=== PATIENT | female | born 1940 | race Caucasian/White ===

== ENCOUNTER 2018-06-08 10:39 | Outpatient (REF) | payer MEDICARE, SELFPAY ==
[2018-06-08 21:24] LABS: Anion Gap 4.9 mmol/L (3-11); BUN 18 mg/dL (7-18); CO2 30.1 mmol/L (21.0-32.0); CREATININE 0.91 mg/dL (0.55-1.02); Calcium 8.8 mg/dL (8.5-10.1); Chloride 105 mmol/L (98-107); Cholesterol 225 mg/dL (50-200); Glucose 89 mg/dL (70-100); HDL Cholesterol 64 mg/dL (40-60); LDL CHOLESTEROL 146 mg/dL (<100); Potassium 4.5 mmol/L (3.5-5.1); Sodium 140 mmol/L (136-145); TSH 3.18 uIU/mL (0.358-3.74); Triglyceride 66 mg/dL (30-150)
== END 2018-06-08 10:59 ==
LOC: NCHCN 10:39
PROVIDERS: PCP Family Medicine; Visit Provider Physician Assistant Medical
DX: E03.9 Hypothyroidism, unspecified (principal); K21.9 Gastro-esophageal reflux disease without esophagitis
CPT/HCPCS: 80048; 80061; 83721; 84443

== ENCOUNTER 2018-06-23 01:02 | Outpatient (CLI) | payer MEDICARE, SELFPAY ==
--- NOTE | 2018-06-23 08:35 | DI.MAMMO_ITS ---
SYMPTOM/DIAGNOSIS: SCREENING, HEALTH MAINTENANCE EXAM Z00.0 MAMMOGRAM: Mammograms were interpreted according to the usual protocol including computer analysis with CAD system, tomosynthesis and C view imaging. The breast tissue is of moderate radiodensity. There is no demonstrated mass. There are no suspicious calcifications and there has been no significant interval change when compared with prior images. SUMMARY: No evidence of malignancy, Category 1. Annual screening mammography is recommended. Breast density category B. SA ASSESSMENT OF FINDINGS: Negative. Category 1. Patient will receive a letter notifying them of these results. BI-RADS category B. There are scattered areas of fibroglandular density.
== END 2018-06-23 01:22 ==
PROVIDERS: PCP Family Medicine; Visit Provider Physician Assistant Medical
DX: Z12.31 Encounter for screening mammogram for malignant neoplasm of breast (principal)
CPT/HCPCS: 77063; 77067

== ENCOUNTER 2019-04-23 08:26 | Emergency (ER) | payer MEDICARE, SELFPAY ==
[2019-04-23] VITALS (51 sets, daily range): BP systolic 112–184; BP diastolic 56–150; PULSE 48–76; RESP 8–21; TEMP 36.4–36.8; O2SAT 94–100
--- NOTE | 2019-04-23 08:32 | ED.GENADUL_ITS ---
Discharge Plan Disposition Patient Disposition: [facility] Condition: Serious Discharge Details Chief Complaint: Chest Pain Clinical Impression: Non-ST elevation PA (NSTEMI) Primary Care Provider: Yusuf Markham ED Provider: Harrison Orona Home Meds and New Rx's Prescriptions: No Action ranitidine HCl [Zantac] 150 MG tablet 150 mg PO DAILY RF: 0 levothyroxine [Synthroid] 150 MCG tablet 150 mcg PO DAILY RF: 0 Calcium 600 + D(3) 600 mg calcium- 200 unit Capsule 1 cap PO DAILY RF: 0 celecoxib [Celebrex] 50 mg Capsule 50 mg PO DAILY RF: 0 Medical Decision Making 78 yo female who states she has a hx of gerd, copd though never smoker, comes in with chief complaint of sharp anterior chest pain that started shortly after swallowing toast. Denies fevers, chills, and had been feeling well prior to this. She denies any prior cardiac disesae. She appears uncomfortable on exam, does have some reproducible anterior chest pain, clear lungs, no jvd, no diaphoresis and denies radiation of pain. Given it started after eating toast could be gastritis vs spasm of the esophagus but given her age and pain will obtain troponin. her heart score is 3. No hypoxia, evidence of dvt or pleuritic pain so doubt PE. no tearing back pain and normal vascular exam so doubt dissection pt feeling much better, no longer having chest pain but states her arms in her elbows hurt and is declining further pain medicine. She remains HD stable, awaiting lab and xray pt's troponin over 2. She remains hd stable, denies chest pain though still states her arms hurt but is refusing further pain medicine. [place] consult with [facility] [place] wtih Dr. Gary from cardiology at [facility] [place] who accepts for Dr. Pena but they can't take her until tomorrow. Pt requesting [facility] as her family is in that area, will consult with them about transfer to see if they can take her sooner Spoke with [facility] cardiology Dr. Kay and agrees with current treatment plan but they can't take her today either but will place on their list and if she worsens they can take her. I spoke with Dr. Ingram who would like a delta troponin before admitting here. pt's second troponin significantly elevated at over 12 and she has had recurrence of pain, nitro drip ordered. Will discuss further with [facility] given pain recurrence and increased troponin spoke with [facility] and given recurrence of pain and significant elevation in troponin will send to their ED. Accepting provider at [facility] ED is Dr. Salas Differential Diagnosis esophageal spasm, acs, reflux Medical Records Medical records reviewed: Yes I reviewed the patient's medical records. Imaging Data Radiologic Study: Attestation: I personally reviewed and interpreted this imaging study as follows: Imaging: X-Ray My impression: no acute findings Lab Data Lab results reviewed: Yes I reviewed the patient's lab results. ECG Data Attestation: I personally reviewed and interpreted this ECG (s) as follows: Prior ECG tracings: not available for review Interpretation: sinus rhythm, rate of 50, pr 182, negative anterior t waves, no olds to compare 2nd ekg shows sinus bradycardia, rate of 54, pr 204, no acute st t wave ischemic changes compared to the first ekg 3rd ekg shows sinusbradycardia rate of 50, pr204 no acute st t wave ischemic changes compared to 1-2 ekg's HPI General Mode of arrival: ambulatory . Date/Time Provider Initiated Documentation: 04/23/19 08:27 . Limitations to Documentation: no limitations . Information obtained by: patient . History of Present Illness 78 year old F presents to the emergency department with the chief complaint of chest pain, described as severe, Quality is described as stabbing, and is localized to the chest. Patient reports no radiation. Patient started experiencing this hour(s) (1) and it has been constant. No relieving factors improve symptom(s), Patient did receive the following treatments prior to arrival, none Related Data Home Medications Medication Instructions Recorded Confirmed levothyroxine [Synthroid] 150 mcg PO DAILY 04/17/13 04/23/19 ranitidine HCl [Zantac] 150 mg PO DAILY 04/17/13 04/23/19 calcium carbonate-vitamin D3 1 cap PO DAILY 04/23/19 04/23/19 [Calcium 600 + D(3)] celecoxib [Celebrex] 50 mg PO DAILY 04/23/19 04/23/19 Allergies Allergy/AdvReac Type Severity Reaction Status Date / Time No Known Allergies Allergy Unverified 04/23/19 08:37 Review of Systems Review of Systems All systems reviewed & are unremarkable except as noted in HPI and below Constitutional Denies chills, Denies fever(s) and Denies weakness Cardiovascular Denies chest pain and Denies dyspnea Respiratory Denies cough and Denies dyspnea Gastrointestinal Denies abdominal pain, Denies nausea and Denies vomiting Integumentary/Breasts Denies rash Neurologic Denies weakness PFSH Social History Smoking/Tobacco Use Status: Never Drug use: Never Do you feel safe at home: Yes Do you feel safe in your relationship?: Yes Exam Const General: well groomed Orientation: alert HENMT Head: normal to inspection Ears: external ears normal General nose exam: external nose normal Mouth: moist mucous membranes Eyes General: appearance normal, both eyes and all related structures Neck Neck: normal visual inspection Resp Effort & Inspection: normal respiratory effort and able to speak in complete sentences Cardio Rate: regular rate Skin General skin exam: no rashes or lesions noted Neuro General: alert and oriented x3 Extrem General: normal to inspection Psych Mental Status: mental status grossly normal Critical Care Time Critical Care Time: Yes Total Critical Care Time: 120 (minutes) Attestation: time spent reviewing labs, initiating heparin and nitro for patient with nstemi and frequent reassessments for a patient with potential to deteriorate at any time
[2019-04-23] MEDS: Aspirin 81 MG CHEW 324 MG CH (08:50)
[2019-04-23 08:58] LABS: Abs Immature Grans 0.01 k/cumm (0.0-0.09); Absolute Basophil Count 0.02 k/cumm (0.0-0.2); Absolute Eosinophil Count 0.07 k/cumm (0.0-0.7); Absolute Lymphocyte Count 1.54 k/cumm (1.2-3.4); Absolute Monocyte Count 0.38 k/cumm (0.11-0.7); Absolute Neutrophil Count 2.97 k/cumm (1.2-6.7); Basophils % 0.4; Eosinophils % 1.4; HCT 39.3 % (36.0-46.0); Immature Grans % 0.2; Lymphocytes % 30.9; Mean Corp. HGB Concentration 33.1 g/dL (32.0-36.0); Mean Corpuscular Volume 93.6 fL (80-95); Mean Platelet Volume 9.5 fL (8.0-11.0); Monocytes % 7.6; Neutrophils % 59.5; Platelet Count 228 x1000/uL (130-400); RBC Distribution Width 12.7 % (11.7-14.6); White Blood Cell Count 4.99 k/cumm (4.4-10.8)
[2019-04-23 09:10] LABS: PTT Activated 25.1 sec (21.0-31.4); Prothrombin Time 9.6 sec (9.3-11.0)
[2019-04-23 09:22] LABS: ALT 21 U/L (12-78); AST 22 U/L (15-37); Albumin 3.7 g/dL (3.4-5.0); Alkaline Phosphatase 63 U/L (46-116); Anion Gap 8.9 mmol/L (3-11); BUN 15 mg/dL (7-18); Bilirubin, Total 0.4 mg/dL (0.2-1.0); CO2 28.1 mmol/L (21.0-32.0); CREATININE 0.95 mg/dL (0.55-1.02); Calcium 8.8 mg/dL (8.5-10.1); Chloride 102 mmol/L (98-107); Estimated GFR 57.19 (mL/min/1.73m2); Glucose 128 mg/dL (70-100); Magnesium 2.1 mg/dL (1.8-2.4); NT-proBNP 116 pg/mL; Potassium 3.9 mmol/L (3.5-5.1); Sodium 139 mmol/L (136-145); Total Protein 7.4 g/dL (6.4-8.2)
--- NOTE | 2019-04-23 09:27 | DI.RAD_ITS ---
SYMPTOM/DIAGNOSIS: CHEST PAIN PORTABLE AP VIEW: Comparison 01/30/16 and 04/17/13 Heart size and pulmonary vasculare are within normal limits. The lungs are clear and well expanded. No effusions or pneumothoraces are identified. Degenerative changes are seen in the spine. Surgical clips are seen in the right upper quadrant.likely reflecting prior cholecystectomy IMPRESSION: No acute pulmonary process.
[2019-04-23] MEDS: Clopidogrel 300 MG TAB PO (09:59)
--- NOTE | 2019-04-23 10:11 | DI.VRAD_ITS ---
EXAM: XR Chest, 1 View EXAM DATE/TIME: 04/23/2019 8:32 AM CLINICAL HISTORY: 78 years old, female; Other: Chest pain TECHNIQUE: Imaging protocol: XR of the chest, 1 view. COMPARISON: CR CHEST 2 VIEWS PA,LAT 04/17/2013 11:56 PM FINDINGS: Lungs: Unremarkable. No consolidation. Pleural space: Unremarkable. No pleural effusion. No pneumothorax. Heart/Mediastinum: Unremarkable. No cardiomegaly. Upper abdomen: Surgical clips in the right upper quadrant of abdomen Bones/joints: Degenerative changes in the thoracic spine IMPRESSION: No acute process Dictated and Authenticated by: Balbir Chatterjee MD. Ordering:SHANIA Terry MD
--- NOTE | 2019-04-23 10:56 | NUR.NOTE ---
Nursing Note: PT reports increasing CP (02/04). MD made aware. Verbal orders received to administer a second SL nitro tablet. BP stable at this time.
--- NOTE | 2019-04-23 11:20 | NUR.NOTE ---
Nursing Note: Additional IV access obtained in the left AC with a 20G catheter.
[2019-04-23 11:51] LABS: Troponin I 12.94 ng/mL (0.00-0.06)
--- NOTE | 2019-04-23 13:12 | NUR.NOTE ---
Nursing Note: PT report transferred to Sofie at [facility]
== END 2019-04-23 13:13 ==
PROVIDERS: Emergency Provider Emergency Medicine; PCP Physician Assistant Medical
DX: I21.4 Non-ST elevation (NSTEMI) myocardial infarction (principal); J44.9 Chronic obstructive pulmonary disease, unspecified
CPT/HCPCS: 80053; 93005; 96365; 96366; 96368; 96376; 99291; 99292; 71045; 83735; 83880; 84484; 85025; 85610; 85730; 93010; J3490

== ENCOUNTER 2019-07-25 22:09 | Outpatient (REF) | payer MEDICARE, SELFPAY ==
[2019-07-25 22:02] LABS: ALT 37 U/L (14-59); AST 22 U/L (15-37); Albumin 3.8 g/dL (3.4-5.0); Alkaline Phosphatase 80 U/L (46-116); Anion Gap 9.2 mmol/L (3-11); BUN 17 mg/dL (7-18); Bilirubin, Total 0.5 mg/dL (0.2-1.0); CO2 27.8 mmol/L (21.0-32.0); Calcium 9.1 mg/dL (8.5-10.1); Calculated LDL 77 mg/dL; Chloride 105 mmol/L (98-107); Cholesterol 150 mg/dL (50-200); Glucose 96 mg/dL (70-100); HDL Cholesterol 62 mg/dL (40-60); Potassium 4.3 mmol/L (3.5-5.1); Sodium 142 mmol/L (136-145); TSH 0.22 uIU/mL (0.36-3.74); Total Protein 6.8 g/dL (6.4-8.2); Triglyceride 59 mg/dL (30-150)
== END 2019-07-25 22:29 ==
LOC: NCHCN 22:09
PROVIDERS: PCP Physician Assistant Medical; Visit Provider Physician Assistant Medical
DX: E03.9 Hypothyroidism, unspecified (principal)
CPT/HCPCS: 80053; 80061; 84443

== ENCOUNTER 2019-08-05 04:38 | Outpatient (CLI) | payer MEDICARE, SELFPAY ==
--- NOTE | 2019-08-05 15:49 | DI.MAMMO_ITS ---
EXAM: MAMMO SCREENING CLINICAL HISTORY: SCREENING, Z12.31, HEALTH MAINTENANCE EXAM, Z00.8 TECHNIQUE: Mammograms were interpreted according to the usual protocol including computer analysis w [employer] CAD system, tomosynthesis and C-view imaging. COMPARISON: Comparison is made with exams from 2011 through 2018. FINDINGS: The breasts are composed of scattered fibroglandular densities, breast density category B. No suspici ous masses or suspicious microcalcifications are seen. There has been no significant change. IMPRESSION: Category 1, negative mammogram. Yearly screening mammography is recommended. BI-RADS Cat 1 - Negative Breast Density - Category B - Scattered areas of fibroglandular density
== END 2019-08-05 04:58 ==
PROVIDERS: PCP Physician Assistant Medical; Visit Provider Physician Assistant Medical
DX: Z12.31 Encounter for screening mammogram for malignant neoplasm of breast (principal)
CPT/HCPCS: 77063; 77067

== ENCOUNTER → 2019-08-10 10:34 | Outpatient (BNVA) | payer MEDICARE, SELFPAY | PROVIDERS: PCP Physician Assistant Medical; Referring Provider Physician Assistant Medical; Visit Provider Orthopaedic Surgery | DX: R22.31 Localized swelling, mass and lump, right upper limb (principal) | CPT/HCPCS: 99201; 99213 ==

== ENCOUNTER 2019-09-05 06:15 | Day surgery (SDC) | payer MEDICARE, SELFPAY ==
[2019-09-05] MEDS: Lactated Ringers 1,000 ML 80 ML IV (07:25)
--- NOTE | 2019-09-05 07:54 | SOFT_PTH ---
PATIENT: Karla Mg LOC: [facility] U#:[id number] AGE/SX: 79/F ROOM: RE09/05/[address]: Noah Marroquin MD : [id number] BED: DIS: 09/05/2019 SPEC #: [id number] RECD: 09/05/19 12:52 STATUS: STEPHANY REQ #: [id number] ANTHONY: 09/05/19 07:[address]: Noah Marroquin DEPT: Surgical Specimen RECD BY: Gin Vasques ENTERED: 09/05/19 12:53 SP TYPE: SOFT OTHR DR: Yusuf Markham Tissues: 1 - SOFT TISSUE-CYST(NOT LIPOMA) Procedures: GROSS AND MICRO LEVEL 4 Comments: [id number]
[2019-09-05] MEDS: Lidocaine 2% Multi-Dose 50 ML VIAL (07:55)
--- NOTE | 2019-09-05 08:16 | W.PM.DSUDISC ---
Discharge Plan Disposition Patient Disposition: HOME Condition: Good Discharge Details Reason For Visit: Excision mass RIF Attending Provider: Noah Marroquin Primary Care Provider: Yusuf Markham Home Meds and New Rx's Prescriptions: New hydrocodone-acetaminophen 5-325 mg tablet 1 tab PO Q6H PRN (Reason: pain) Qty: 7 RF: 0 Continued atorvastatin 40 mg tablet 40 mg PO .QOD RF: 0 pantoprazole 40 mg tablet,delayed release (DR/EC) 20 mg PO DAILY RF: 0 ranitidine HCl [Zantac] 150 MG tablet 150 mg PO DAILY RF: 0 Calcium 600 + D(3) 600 mg calcium- 200 unit Capsule 1 cap PO DAILY RF: 0 levothyroxine [Unithroid] 137 mcg Tablet 137 mcg PO DAILY RF: 0 aspirin [Aspir-81] 81 mg Tablet,Delayed Release (Dr/Ec) 81 mg PO DAILY RF: 0 albuterol sulfate [ProAir HFA] 90 mcg/actuation Hfa Aerosol Inhaler 2 puff INHALATION PRN PRNRF: 0 Discharge Instructions Additional Instructions: Keep dressings dry. May use R hand as much as discomfort allows. Follow up with in 10-14 days. Take tylenol for mild pain. Take hydrocodone for breakthru pain, if needed. Referrals: Noah Marroquin MD [ [facility] STAFF PHYSICIAN] - (f/u in 10-14 days.) Activity:: Activity as Tolerated Remove Dressings/Wound Care:: Do Not Remove Shower/Bathe:: Cover Diet:: As Tolerated Discharge Orders Discharge Orders: Discharge Order (Routine); Ordered 09/05/19 Ordered By: Noah Marroquin DS: Diagnosis Discharge Diagnosis (1) Subcutaneous mass of finger of right hand: Status: Acute
[2019-09-05 12:25] VITALS: BP 166/78; PULSE 81; RESP 16; TEMP 36.5; O2SAT 100
--- NOTE | 2019-09-06 16:19 | ROE_ITS ---
DATE OF PROCEDURE: September 05, 2019 PREOPERATIVE DIAGNOSIS: Subcutaneous mass, right index finger, of uncertain behavior. POSTOPERATIVE DIAGNOSIS: Same. PROCEDURE: Excisional biopsy of subcutaneous mass, right index finger. ANESTHESIA: Digital block with 1% Xylocaine solution and 0.5% Marcaine solution. SURGEON: Noah Marroquin M.D. INDICATIONS: This is a 79-year-old white female with a 4 to 5 history of a slowly enlarging mass on the right index finger. She has no pain with the mass. She sought medical attention because the siz e of the mass was so large that it interfered with flexion of her DIP joint of her right index finger . Examination showed it to be a hard, solid mass. Whether it is benign or malignant was uncertain. Because of the large size it had grown to, I recommended excisional biopsy to obtain an accurate justyna gnosis and also to improve the flexion of her DIP joint of the right index finger. The risks and com plications of the procedure were explained to the patient in detail preoperatively. PROCEDURE: The patient was taken to the operating room on 09/05/19. She was placed supine on the ope rating table. The right hand was prepped and draped free in the usual sterile fashion. A digital bl ock was administered at the level of the metacarpal neck to the right index finger with 1% Xylocaine solution. A [place] tourniquet was applied to the proximal base of the finger. An oblique incision was made over the mass beginning at the ulnar side of the distal flexion crease, extending to the rad ial side of the middle flexion crease of the finger. The incision was carried just through the skin and then sharp dissection was used to circumferentially dissect the skin and subcu off the mass. The mass appeared to be well-encapsulated, although quite irregular in shape. Sharp dissection was used to peel the mass, along with a portion of the distal flexor sheath, in one specimen. On inspection of the wound following excision, there appeared to be just normal tissue remaining. The wound was ir rigated with Betadine and saline solution and the wound margins were infiltrated with 0.5% Marcaine s olution for postoperative analgesia. The skin edges were then loosely approximated with interrupted #4-0 nylon sutures. The wound was dressed with Xeroform gauze and then followed with tube gauze. Th e [place] tourniquet was released prior to skin closure and good hemostasis was obtained with simple direct pressure for a couple of minutes. The patient tolerated the procedure well and was discharged to the Day Surgery Unit in good condition. The patient was discharged home from the Day Surgery Unit with instructions to keep her dressings miguel an and dry for the next week. She may move her finger as much as discomfort allows. She'll take Tyl enol or ibuprofen [id number] for pain. She will follow-up in my office in one week for dressin g change and wound check.
== END 2019-09-05 08:45 | disposition home or self-care (01) ==
PROVIDERS: PCP Physician Assistant Medical; Visit Provider Orthopaedic Surgery
PROC: (CPT 26160; principal; 2019-09-05 07:30)
DX: D48.1 Neoplasm of uncertain behavior of connective and other soft tissue (principal)
CPT/HCPCS: 11422; 88305

== ENCOUNTER → 2019-09-14 10:34 | Outpatient (BNVA) | payer MEDICARE, SELFPAY | PROVIDERS: PCP Physician Assistant Medical; Referring Provider Physician Assistant Medical; Visit Provider Orthopaedic Surgery | DX: Z47.89 Encounter for other orthopedic aftercare (principal); R22.31 Localized swelling, mass and lump, right upper limb ==

== ENCOUNTER → 2019-10-11 08:35 | Outpatient (BNVA) | payer MEDICARE, SELFPAY | PROVIDERS: PCP Physician Assistant Medical; Referring Provider Physician Assistant Medical; Visit Provider Orthopaedic Surgery | DX: Z47.89 Encounter for other orthopedic aftercare (principal); D48.1 Neoplasm of uncertain behavior of connective and other soft tissue ==

== ENCOUNTER 2019-10-11 08:53 | Outpatient (REF) | payer MEDICARE, SELFPAY ==
[2019-10-11 19:30] LABS: TSH 0.83 uIU/mL (0.36-3.74)
== END 2019-10-11 09:13 ==
LOC: NCHCN 08:53
PROVIDERS: PCP Physician Assistant Medical; Visit Provider Physician Assistant Medical
DX: E03.9 Hypothyroidism, unspecified (principal)
CPT/HCPCS: 84443

== ENCOUNTER 2019-10-24 12:42 | Emergency (ER) | payer MEDICARE, SELFPAY ==
[2019-10-24 12:46] VITALS: BP 185/85; PULSE 104; RESP 18; TEMP 36.5; O2SAT 98
--- NOTE | 2019-10-24 13:23 | ED.GENADUL_ITS ---
Discharge Plan Disposition Patient Disposition: HOME Condition: Stable Discharge Details Chief Complaint: Laceration Clinical Impression: Laceration of scalp, Fall, Head injury Primary Care Provider: Yusuf Markham ED Provider: Alfredo Conrad Home Meds and New Rx's Prescriptions: New cephalexin [Keflex] 500 mg capsule 500 mg PO QID Qty: 37 RF: 0 Continued atorvastatin 40 mg tablet 40 mg PO .QOD RF: 0 pantoprazole 40 mg tablet,delayed release (DR/EC) 20 mg PO DAILY RF: 0 Calcium 600 + D(3) 600 mg calcium- 200 unit Capsule 1 cap PO DAILY RF: 0 levothyroxine [Unithroid] 137 mcg Tablet 137 mcg PO DAILY RF: 0 aspirin [Aspir-81] 81 mg Tablet,Delayed Release (Dr/Ec) 81 mg PO DAILY RF: 0 albuterol sulfate [ProAir HFA] 90 mcg/actuation Hfa Aerosol Inhaler 2 puff INHALATION PRN PRNRF: 0 Discharge Instructions Instructions: Cephalexin (By mouth), Laceration (ED), Head Injury (ED), Staple Care (ED) Additional Instructions: Please return immediately to the emergency department if you develop any new or worsening symptoms, if your condition does not improve as expected, or if you become otherwise concerned. It is extremely important that you call soon as possible to make an appointment to be seen in follow-up for this visit by your primary care doctor. You need to have your wound rechecked in 3 to 4 days. Please return to the emergency department at this time if you are unable to see your primary doctor for this. You will also need to have your westley removed in 10 days, this may be done either by her primary care doctor or in the emergency department. Referrals: Yusuf Markham PA [Primary Care Provider] - Discharge Data Discharge Date/Time-TO BE ENTERED AT DEPARTURE: 10/24/19 18:05 Medical Decision Making <Nahomi Villanueva MD - Last Filed: 10/27/19 21:01> Karla Mg is a 79-year-old woman with a history of GERD, coronary artery disease, COPD who presented to the emergency department with fall of unclear etiology resulting in head injury, scalp laceration. On exam patient is very well and nontoxic appearing. Benign cardiopulmonary exam. Sick centimeter curvilinear scalp laceration, no active bleeding, cervical spine nontender to palpation. Nonfocal neurologic exam. Concern for fall caused by possible syncope versus mechanical, acute emergent intracranial trauma. Plan for EKG, chest x-ray, screening labs, CT head, laceration repair. Exam/history is not c onsistent with sepsis, cerebrovascular accident, acute aortic pathology, pulmonary embolism. Tetanus up-to-date upon record review. CT head, chest x-ray negative. Labs reviewed, troponin negative, TSH normal. Laceration irrigated copiously under pressure. During exploration of wound, laceration/tear of galea noted. Due to tear, unable to fully approximate galea. Galea approximated as closely as possible using Vicryl sutures. Wound reirrigated copiously under pressure after closure of galea. Skin repaired with westley. Please see procedure note. Given galea laceration, plan for proph ylactic Keflex. Low suspicion for ACS, however given incident occurred just prior to arrival awaiting repeat troponin. Anticipating discharge, I had a lengthy discussion with Patient regarding return to emergency department precautions, home care, and importance of outpatient follow-up. Pt verbalizes understanding of the plan and is amenable. Disposition decision was made weighing the risks and benefits of hospitalization versus outpatient treatment, the risk for further decompensation, and the patient's wishes. Patient signed out to Dr. Conrad with repeat troponin pending Medical Records Medical records reviewed: Yes I reviewed the patient's medical records. Imaging Data Radiologic Study: Attestation: I personally reviewed and interpreted this imaging study as follows: Radiologist's impression: EXAM: XR CHEST 2V PA LATERAL CLINICAL HISTORY: pre-syncope TECHNIQUE: 2D digital imaging was performed. COMPARISON: No exams were available for comparison FINDINGS: The cardiac and mediastinal contours have a normal appearance. The lungs are well inflated and clear. No infiltrate, effusion or pneumothorax is seen. No spine or rib fracture is identified. IMPRESSION: Negative chest x-ray. EXAM: CT HEAD WO CLINICAL HISTORY: TRAUMA, HEADACHE TECHNIQUE: Noncontrast COMPARISON: No exams were available for comparison FINDINGS: There is a scalp laceration seen near the vertex. There is no skull fracture or intracranial hemorrhage. The ventricles are normal size. There is mild atrophy consistent with the patient's age. The sinuses and mastoid air cells appear clear. IMPRESSION: Scalp laceration. No acute intracranial abnormality. Lab Data Lab results reviewed: Yes I reviewed the patient's lab results. Labs: Laboratory Tests Range/Units 10/24/19 10/24/19 10/24/19 13:55 13:55 17:21 WBC (4.4-10.8) k/cumm 4.76 RBC (4.00-5.20) m/cumm 4.26 Hgb (12.0-15.5) g/dL 12.6 Hct (36.0-46.0) % 39.3 MCV (80-95) fL 92.3 MCH (27.0-33.0) pg 29.6 MCHC (32.0-36.0) g/dL 32.1 RDW (11.7-14.6) % 12.4 Plt Count (130-400) x1000/uL 246 MPV (8.0-11.0) fL 9.1 Immature Gran % % 0.4 Neutrophils % 69.4 Lymphocytes % 22.9 Monocytes % 6.3 Eosinophils % 0.8 Basophils % 0.2 Absolute Neutrophils (1.2-6.7) k/cumm 3.30 Absolute Lymphocytes (1.2-3.4) k/cumm 1.09 L Absolute Monocytes (0.11-0.7) k/cumm 0.30 Absolute Eosinophils (0.0-0.7) k/cumm 0.04 Absolute Basophils (0.0-0.2) k/cumm 0.01 Sodium (136-145) mmol/L 143 Potassium (3.5-5.1) mmol/L 3.6 Chloride (98-107) mmol/L 103 Carbon Dioxide (21.0-32.0) mmol/L 30.1 Anion Gap (3-11) mmol/L 9.9 BUN (7-18) mg/dL 22 H Creatinine (0.55-1.02) mg/dL 0.89 Estimated GFR/1.73 m2 (mL/min/1.73m2) >= 60.00 Glucose (74-106) mg/dL 99 Calcium (8.5-10.1) mg/dL 9.1 Total Bilirubin (0.2-1.0) mg/dL 0.5 AST (15-37) U/L 26 ALT (14-59) U/L 21 Alkaline Phosphatase (46-116) U/L 81 Troponin I (<0.06) ng/Ml < 0.05 < 0.05 Total Protein (6.4-8.2) g/dL 7.5 Albumin (3.4-5.0) g/dL 3.9 TSH (0.36-3.74) uIU/mL 0.58 ECG Data Attestation: I personally reviewed and interpreted this ECG (s) as follows: Interpretation: EKG shows sinus rhythm at 65, normal axis, no WPW, no Brugada, normal intervals, no HOCM, no acute ischemic changes, nondiagnostic EKG <Alfredo Conrad DO - Last Filed: 10/24/19 17:58> Patient was signed out to me by my colleague Dr. Citlaly Villanueva pending repeat troponin. Repeat troponin has returned normal. Patient remains asymptomatic and is requesting discharge. She feels well. Signs and symptoms are clinically inconsistent with ACS. Laceration has been repaired by Dr. Villanueva. Please refer to her note, documentation history and assessment for plan. I have extensively reviewed the treatment plan and discharge instructions with the patient and their family. I have addressed all patient concerns at this time. The patient and family was made aware of what symptoms to monitor for that would warrant a return to the emergency department. Discussed the plan with the patient and family, they demonstrate verbal understanding and agreement with our assessment and plan at this time. HPI <Nahomi Villanueva MD - Last Filed: 10/27/19 21:01> General Mode of arrival: ambulatory . Date/Time Provider Initiated Documentation: 10/24/19 12:50 . Limitations to Documentation: no limitations . Information obtained by: patient, family, RN notes reviewed and old records reviewed . HPI Narrative: Karla Mg is a 79 y/o woman with history of COPD, GERD, coronary artery disease presenting to the emergency department with head laceration. Patient reports that she was in her usual state of health when she was out working in her woodpile. She reports that 2 boards placed on the ground near her woodpile to walk on. Patient reports that she stepped onto 1 of the boards, and when she went to step onto the second something funny happened with my feet and she fell to the side, hitting her head on a piece of machinery. Patient states that she is unsure if she had a misstep and the fall was mechanical, or whether the fall was physiologic. With regards to how the fall occurred, patient reports I do not know, I do not know if I stepped wrong or not, I just know something weird happened. Patient reports that she had no loss of consciousness either prior to hitting her head or after hitting her head and remembers the event in its entirety. Patient reports that incident occurred approximately 1 hour prior to arrival. She reports that she got up immediately after the fall and has been walking without issue. Patient reports that she has had pain in the area of her head where the laceration is, she denies any other pain or any other symptoms. No fevers, no vision changes, no palpitations, no shortness of breath, no cough, no vomiting, no diarrhea, no numbness, no weakness, no other injury or skin wound. Previously in her usual state of health, no recent travel, has been eating and drinking as usual. Patient reports that she has not had this sensation that she had today in the past, does not have a history of falls, presyncope, or syncope. Related Data Home Medications Medication Instructions Recorded Confirmed Calcium 600 + D(3) 1 cap PO DAILY 04/23/19 10/24/19 atorvastatin 40 mg tablet 40 mg PO .QOD 08/10/19 10/24/19 pantoprazole 40 mg tablet,delayed 20 mg PO DAILY 08/10/19 10/24/19 release albuterol sulfate [ProAir HFA] 2 puff INHALATION PRN PRN 09/02/19 10/24/19 aspirin [Aspir-81] 81 mg PO DAILY 09/02/19 10/24/19 levothyroxine [Unithroid] 137 mcg PO DAILY 09/02/19 10/24/19 cephalexin [Keflex] 500 mg PO QID #37 cap 10/24/19 Previous Rx's Medication Instructions Recorded cephalexin [Keflex] 500 mg PO QID #37 cap 10/24/19 Allergies Allergy/AdvReac Type Severity Reaction Status Date / Time No Known Allergies Allergy Verified 10/24/19 12:49 General Stated Complaint: Laceration SANIYA: 3 Review of Systems <Nahomi Villanueva MD - Last Filed: 10/27/19 21:01> Narrative: Constitutional: denies fevers Eyes: denies eye pain ENT: denies ear pain, dental pain, sore throat Cardiovascular: denies chest pain, edema, lightheadedness, palpitations Respiratory: denies SOB, cough GI: denies abdominal pain, vomiting, diarrhea : denies flank pain MSK: denies back pain, neck pain, arthralgias, myalgias Skin: denies rash Neuro: denies numbness, weakness, vertigo, reports headache PFSH <Nahomi Villanueva MD - Last Filed: 10/27/19 21:01> Medical History COPD (chronic obstructive pulmonary disease) (Chronic) GERD (gastroesophageal reflux disease) (Chronic) NSTEMI (non-ST elevated myocardial infarction) (Acute) Per pt cardiac cath 04/25/19 Social History Smoking/Tobacco Use Status: Never Alcohol Intake: current Alcohol Intake frequency: holidays/special occasions only Alcohol type: hard liquor Drug use: Never Substance use type: does not use Current gender identity: female Do you feel safe at home: Yes Do you feel safe in your relationship?: Yes Exam <Nahomi Villanueva MD - Last Filed: 10/27/19 21:01> Narrative Exam Narrative: Constitutional: well and [id number], pleasant, conv ersing normally HENT: head normocephalic, 6 centimeter curvilinear laceration posterior scalp, no active bleeding, mucous membranes moist, no intraoral lesion, oropharynx without erythema or edema Eyes: conjunctiva normal, sclera normal, pupils 3mm b/l Neck: no stridor, full painless ROM, trachea midline, cervical spine nontender to palpation Chest: normal inspection Resp: normal work of breathing, LCTAB Cardio: normal rate, normal rhythm, no murmur appreciated GI: abdomen soft, non-tender, non-distended Back: normal inspection, no rash Skin: warm, dry, normal color, no rash Neuro: alert, not altered, cranial nerves II through XII intact, motor 5 out of 5 bilateral upper and lower extremities, normal tone Ext: no edema, no posterior calf tenderness, moving all extremities equally Psych: normal mood, normal affect, normal behavior Course <Nahomi Villanueva MD - Last Filed: 10/27/19 21:01> Vital Signs Vital signs: Vital Signs Temperature 36.5 C 10/24/19 12:46 Pulse 104 H 10/24/19 12:46 Respiratory Rate 18 10/24/19 12:46 Blood Pressure 185/85 H 10/24/19 12:46 Pulse Oximetry 98 10/24/19 12:46 Temperature 36.5 C 10/24/19 12:46 Temperature Source Temporal Artery Scan 10/24/19 12:46 Pulse 104 H 10/24/19 12:46 Respiratory Rate 18 10/24/19 12:46 Respiratory Effort 10/24/19 12:52 Blood Pressure 185/85 H 10/24/19 12:46 Blood Pressure Position Sitting 10/24/19 12:46 Pulse Oximetry 98 10/24/19 12:46 Oxygen Delivery Method Room Air 10/24/19 12:46 Oxygen Flow Rate 0 10/24/19 12:46 Pain Level 8 10/24/19 12:46 Procedures <Nahomi Villanueva MD - Last Filed: 10/27/19 21:01> Laceration Laceration 1: Site: scalp Size (cm): 6 Description: linear and clean Pre-repair: wound explored and irrigated extensively (Under pressure) Skin layer closed with: other (Westley) Subcutaneous layer closed with: vicryl (Galea repair) Size: 4-0 Number of sutures: 3 Technique: simple, interrupted Sign Out <Nahomi Villanueva MD - Last Filed: 10/27/19 21:01> Sign Out Data: Sign Out Comment: Patient signed out to Dr. Conrad at time of shift change with repeat troponin pending Last updated by Nahomi Villanueva MD at 10/24/19 17:22
--- NOTE | 2019-10-24 13:44 | DI.CT_ITS ---
EXAM: CT HEAD WO CLINICAL HISTORY: TRAUMA, HEADACHE TECHNIQUE: Noncontrast COMPARISON: No exams were available for comparison FINDINGS: There is a scalp laceration seen near the vertex. There is no skull fracture or intracranial hemorrh age. The ventricles are normal size. There is mild atrophy consistent with the patient's age. The sinuses and mastoid air cells appear clear. IMPRESSION: Scalp laceration. No acute intracranial abnormality.
--- NOTE | 2019-10-24 13:46 | DI.RAD_ITS ---
EXAM: XR CHEST 2V PA LATERAL CLINICAL HISTORY: pre-syncope TECHNIQUE: 2D digital imaging was performed. COMPARISON: No exams were available for comparison FINDINGS: The cardiac and mediastinal contours have a normal appearance. The lungs are well inflated and clear . No infiltrate, effusion or pneumothorax is seen. No spine or rib fracture is identified. IMPRESSION: Negative chest x-ray.
[2019-10-24] MEDS: Normal Saline 500 ML IV (13:55)
[2019-10-24 14:09] LABS: Abs Immature Grans 0.02 k/cumm (0.0-0.09); Absolute Basophil Count 0.01 k/cumm (0.0-0.2); Absolute Eosinophil Count 0.04 k/cumm (0.0-0.7); Absolute Lymphocyte Count 1.09 k/cumm (1.2-3.4); Basophils % 0.2; Eosinophils % 0.8; HCT 39.3 % (36.0-46.0); HGB 12.6 g/dL (12.0-15.5); Immature Grans % 0.4 %; Lymphocytes % 22.9; Mean Corp. HGB Concentration 32.1 g/dL (32.0-36.0); Mean Corpuscular Hemoglobin 29.6 pg (27.0-33.0); Mean Corpuscular Volume 92.3 fL (80-95); Mean Platelet Volume 9.1 fL (8.0-11.0); Monocytes % 6.3; Neutrophils % 69.4; Platelet Count 246 x1000/uL (130-400); RBC 4.26 m/cumm (4.00-5.20); RBC Distribution Width 12.4 % (11.7-14.6); White Blood Cell Count 4.76 k/cumm (4.4-10.8)
[2019-10-24 14:28] LABS: ALT 21 U/L (14-59); AST 26 U/L (15-37); Albumin 3.9 g/dL (3.4-5.0); Alkaline Phosphatase 81 U/L (46-116); Anion Gap 9.9 mmol/L (3-11); BUN 22 mg/dL (7-18); Bilirubin, Total 0.5 mg/dL (0.2-1.0); CO2 30.1 mmol/L (21.0-32.0); CREATININE 0.89 mg/dL (0.55-1.02); Calcium 9.1 mg/dL (8.5-10.1); Chloride 103 mmol/L (98-107); Glucose 99 mg/dL (74-106); Potassium 3.6 mmol/L (3.5-5.1); Sodium 143 mmol/L (136-145); TSH (W/Ref FT4) 0.58 uIU/mL (0.36-3.74); Total Protein 7.5 g/dL (6.4-8.2)
[2019-10-24 14:29] LABS: Troponin I < 0.05 ng/Ml (<0.06)
[2019-10-24] MEDS: Lidocaine/Epinephri/Tetracaine Topical Gel 3 ML (14:32)
[2019-10-24 15:30] VITALS: BP 160/85; PULSE 100
[2019-10-24] MEDS: Acetaminophen 500 MG TAB (17:34)
[2019-10-24] MEDS: Cephalexin 500 MG CAP PO (17:34)
[2019-10-24 17:41] LABS: Troponin I < 0.05 ng/Ml (<0.06)
[2019-10-24] MEDS: Cephalexin 250 MG CAP 500 MG PO ×2 (17:59)
[2019-10-24 18:08] VITALS: BP 151/92; PULSE 70; RESP 18; TEMP 36.5; O2SAT 96
== END 2019-10-24 18:05 | disposition home or self-care (01) ==
PROVIDERS: Student in an Organized Health Care Education/Training Program; Emergency Provider Student in an Organized Health Care Education/Training Program; PCP Physician Assistant Medical
DX: S01.01XA Laceration without foreign body of scalp, initial encounter (principal); S09.90XA Unspecified injury of head, initial encounter; W01.198A Fall on same level from slipping, tripping and stumbling with subsequent striking against other object, initial encounter
CPT/HCPCS: 36415; 80053; 93005; 96360; 99285; 70450; 71046; 84443; 84484; 85025; 93010; 99281

== ENCOUNTER 2019-11-05 09:25 | Emergency (ER) | payer MEDICARE, SELFPAY ==
[2019-11-05 09:32] VITALS: BP 174/79; PULSE 78; RESP 16; TEMP 36.5; O2SAT 97
--- NOTE | 2019-11-05 09:35 | ED.GENADUL_ITS ---
Discharge Plan Disposition Patient Disposition: HOME Condition: Improving Discharge Details Chief Complaint: SutureRem Clinical Impression: Encounter for removal of tammy Primary Care Provider: Yusuf Markham ED Provider: Noah Pack Home Meds and New Rx's Prescriptions: Continued atorvastatin 40 mg tablet 40 mg PO .QOD RF: 0 pantoprazole 40 mg tablet,delayed release (DR/EC) 20 mg PO DAILY RF: 0 Calcium 600 + D(3) 600 mg calcium- 200 unit Capsule 1 cap PO DAILY RF: 0 levothyroxine [Unithroid] 137 mcg Tablet 137 mcg PO DAILY RF: 0 aspirin [Aspir-81] 81 mg Tablet,Delayed Release (Dr/Ec) 81 mg PO DAILY RF: 0 albuterol sulfate [ProAir HFA] 90 mcg/actuation Hfa Aerosol Inhaler 2 puff INHALATION PRN PRNRF: 0 Discharge Instructions Additional Instructions: Resume normal routine and activities. Continue your regular medications. Return for any acute concern. Medical Decision Making 79-year-old female presents for evaluation of healing scalp wound that was repaired with tammy on October 24. 9 tammy were removed without difficulty by nursing staff. Patient stable and appropriate for discharge to home. HPI General Mode of arrival: ambulatory . Date/Time Provider Initiated Documentation: 11/05/19 09:26 . Limitations to Documentation: no limitations . Information obtained by: patient . History of Present Illness 79 year old F presents to the emergency department with the chief complaint of Wound check and staple removal, and is localized to the head. Patient started experiencing this day(s) and it has been constant. No relieving factors improve symptom(s), No exacerbating factors reported . Patient notes no other symptoms.. Related Data Home Medications Medication Instructions Recorded Confirmed Calcium 600 + D(3) 1 cap PO DAILY 04/23/19 11/05/19 atorvastatin 40 mg tablet 40 mg PO .QOD 08/10/19 11/05/19 pantoprazole 40 mg tablet,delayed 20 mg PO DAILY 08/10/19 11/05/19 release albuterol sulfate [ProAir HFA] 2 puff INHALATION PRN PRN 09/02/19 11/05/19 aspirin [Aspir-81] 81 mg PO DAILY 09/02/19 11/05/19 levothyroxine [Unithroid] 137 mcg PO DAILY 09/02/19 11/05/19 Allergies Allergy/AdvReac Type Severity Reaction Status Date / Time No Known Allergies Allergy Verified 11/05/19 09:35 General SANIYA: 3 Review of Systems Narrative: No fever, discharge, redness. [facility] Medical History COPD (chronic obstructive pulmonary disease) (Chronic) GERD (gastroesophageal reflux disease) (Chronic) NSTEMI (non-ST elevated myocardial infarction) (Acute) Per pt cardiac cath 04/25/19 Social History Smoking/Tobacco Use Status: Never Alcohol Intake: current Alcohol Intake frequency: holidays/special occasions only Alcohol type: hard liquor Drug use: Never Substance use type: does not use Current gender identity: female Do you feel safe at home: Yes Do you feel safe in your relationship?: Yes Exam Narrative Exam Narrative: GEN: awake, alert, oriented 3. Pleasant, well groomed, interactive. HEAD: Normocephalic, healing scalp laceration with [address] on the vertex. Minimal hematoma present. No evidence of discharge or erythema. ENT: Mucous membranes moist, oropharynx unremarkable, External ear exam unremarkable Neuro: Grossly normal neurologic exam, conversant, interactive. Psych: Speech fluent, thoughts congruent, affect normal
== END 2019-11-05 09:41 | disposition home or self-care (01) ==
LOC: ER 09:41
PROVIDERS: Emergency Provider Emergency Medicine; PCP Physician Assistant Medical
DX: S01.01XD Laceration without foreign body of scalp, subsequent encounter (principal); W01.198D Fall on same level from slipping, tripping and stumbling with subsequent striking against other object, subsequent encounter; Z48.02 Encounter for removal of sutures

== ENCOUNTER 2020-10-17 19:15 | Outpatient (REF) | payer MEDICARE, SELFPAY ==
[2020-10-17 20:59] LABS: ALT 19 U/L (14-59); AST 17 U/L (15-37); Albumin 3.8 g/dL (3.4-5.0); Alkaline Phosphatase 75 U/L (46-116); Anion Gap 5.6 mmol/L (3-11); BUN 16 mg/dL (7-18); Bilirubin, Total 0.5 mg/dL (0.2-1.0); CO2 31.4 mmol/L (21.0-32.0); CREATININE 0.88 mg/dL (0.55-1.02); Calcium 8.9 mg/dL (8.5-10.1); Calculated LDL 85 mg/dL (<100); Chloride 106 mmol/L (98-107); Cholesterol 154 mg/dL (<200); Glucose 95 mg/dL (74-106); HDL Cholesterol 56 mg/dL (40-60); Sodium 143 mmol/L (136-145); TSH 0.69 uIU/mL (0.36-3.74); Total Protein 6.9 g/dL (6.4-8.2); Triglyceride 69 mg/dL (<150)
== END 2020-10-17 19:35 ==
LOC: NCHCN 19:15
PROVIDERS: PCP Physician Assistant Medical; Visit Provider Physician Assistant Medical
DX: R51.9 Headache, unspecified (principal); E03.9 Hypothyroidism, unspecified; I25.2 Old myocardial infarction
CPT/HCPCS: 80053; 80061; 84443

== ENCOUNTER 2021-03-12 18:40 | Outpatient (REF) | payer MEDICARE, SELFPAY ==
[2021-03-14 11:07] LABS: HSV 1 DNA Result Negative (Negative); HSV 2 DNA Result Negative (Negative); Varicella Zoster DNA Result Negative (Negative)
== END 2021-03-12 18:41 | disposition home or self-care (01) ==
LOC: NCHCN 18:40
PROVIDERS: PCP Physician Assistant Medical; Visit Provider Physician Assistant Medical
DX: N89.8 Other specified noninflammatory disorders of vagina (principal)
CPT/HCPCS: 87529; 87798

== ENCOUNTER 2022-01-28 19:44 | Outpatient (REF) | payer MEDICARE, SELFPAY ==
[2022-01-28 19:25] LABS: ALT 21 U/L (14-59); AST 18 U/L (15-37); Albumin 3.7 g/dL (3.4-5.0); Alkaline Phosphatase 84 U/L (46-116); Anion Gap 8.5 mmol/L (3-11); BUN 9 mg/dL (7-18); CO2 28.5 mmol/L (21.0-32.0); CREATININE 0.8 mg/dL (0.55-1.02); Calcium 8.3 mg/dL (8.5-10.1); Calculated LDL 68 mg/dL (<100); Chloride 105 mmol/L (98-107); Cholesterol 144 mg/dL (<200); Glucose 68 mg/dL (74-106); HDL Cholesterol 60 mg/dL (40-60); Potassium 3.5 mmol/L (3.5-5.1); Sodium 142 mmol/L (136-145); TSH 0.87 uIU/mL (0.36-3.74); Total Protein 6.8 g/dL (6.4-8.2); Triglyceride 82 mg/dL (<150)
[2022-01-28 19:54] LABS: Bilirubin, Total 0.3 mg/dL (0.2-1.0)
== END 2022-01-28 19:45 | disposition home or self-care (01) ==
LOC: NCHCN 19:44
PROVIDERS: PCP Physician Assistant Medical; Visit Provider Physician Assistant Medical
DX: E03.9 Hypothyroidism, unspecified (principal); I25.2 Old myocardial infarction
CPT/HCPCS: 80053; 80061; 84443

== ENCOUNTER 2023-05-15 19:04 | Outpatient (REF) | payer MEDICARE, SELFPAY ==
[2023-05-15 16:40] LABS: ALT 16 U/L (14-59); AST 19 U/L (15-37); Albumin 3.6 g/dL (3.4-5.0); Alkaline Phosphatase 111 U/L (46-116); Anion Gap 7.4 mmol/L (3-11); BUN 14 mg/dL (7-18); Bilirubin, Total 0.5 mg/dL (0.2-1.0); CO2 31.6 mmol/L (21.0-32.0); CREATININE 0.8 mg/dL (0.55-1.02); Calcium 9.3 mg/dL (8.5-10.1); Calculated LDL 101 mg/dL (<100); Chloride 106 mmol/L (98-107); Cholesterol 180 mg/dL (<200); Estimated GFR 74.44 (mL/min/1.73m2); Glucose 93 mg/dL (74-106); HDL Cholesterol 56 mg/dL (40-60); Potassium 3.9 mmol/L (3.5-5.1); Sodium 145 mmol/L (136-145); TSH 0.47 uIU/mL (0.36-3.74); Total Protein 7.7 g/dL (6.4-8.2); Triglyceride 117 mg/dL (<150)
== END 2023-05-15 19:05 | disposition home or self-care (01) ==
LOC: NCHCN 19:04
PROVIDERS: PCP Physician Assistant Medical; Visit Provider Physician Assistant Medical
DX: E78.5 Hyperlipidemia, unspecified (principal); E03.9 Hypothyroidism, unspecified
CPT/HCPCS: 80053; 80061; 84443

== ENCOUNTER 2023-11-17 14:43 | Outpatient (REF) | payer MEDICARE, SELFPAY | END 2023-11-17 14:44 | disposition home or self-care (01) | LOC: NCHCN 14:43 | PROVIDERS: PCP Physician Assistant Medical; Visit Provider Physician Assistant Medical | DX: R82.998 Other abnormal findings in urine (principal); M54.89 Other dorsalgia | CPT/HCPCS: 87086 ==

== ENCOUNTER 2024-06-29 17:27 | Outpatient (REF) | payer MEDICARE, SELFPAY ==
[2024-06-29 15:48] LABS: ALT 14 U/L (14-59); AST 20 U/L (15-37); Albumin 2.6 g/dL (3.4-5.0); Alkaline Phosphatase 119 U/L (46-116); Anion Gap 10.3 mmol/L (3-11); BUN 11 mg/dL (7-18); Bilirubin, Total 0.25 mg/dL (0.2-1.0); CO2 27.7 mmol/L (21.0-32.0); CREATININE 0.9 mg/dL (0.55-1.02); Calcium 9.7 mg/dL (8.5-10.1); Calculated LDL 78 mg/dL (<100); Chloride 103 mmol/L (98-107); Cholesterol 134 mg/dL (<200); Estimated GFR 64.23 (mL/min/1.73m2); Glucose 103 mg/dL (74-106); HDL Cholesterol 41 mg/dL (40-60); Potassium 3.7 mmol/L (3.5-5.1); Sodium 141 mmol/L (136-145); TSH (W/Ref FT4) 0.19 uIU/mL (0.36-3.74); Total Protein 7.8 g/dL (6.4-8.2); Triglyceride 77 mg/dL (<150)
[2024-06-29 16:13] LABS: FREE T4 1.46 ng/dL (0.76-1.46)
== END 2024-06-29 17:28 | disposition home or self-care (01) ==
LOC: NCHCN 17:27
PROVIDERS: PCP Physician Assistant Medical; Visit Provider Physician Assistant Medical
DX: E03.9 Hypothyroidism, unspecified (principal)
CPT/HCPCS: 80053; 80061; 84439; 84443

== ENCOUNTER 2025-05-16 17:51 | Outpatient (REF) | payer MEDICARE, SELFPAY ==
[2025-05-16 15:43] LABS: Abs Immature Grans 0.04 10^3/uL (0.0-0.06); HCT 26.1 % (36.0-46.0); HGB 7.5 g/dL (11.2-15.7); Immature Grans % 0.7 %; MCH 22.4 pg (27.0-33.0); MCHC 28.7 % (32.0-36.0); MCV 78 fL (80-95); MPV 8.6 fL (8.0-11.0); Platelet Count 563 10^3/uL (130-400); RBC 3.35 10^6/uL (3.93-5.22); RDW 17.7 % (11.7-14.6); RDW-SD 50.2 fL; WBC 5.73 10^3/uL (4.4-10.8)
[2025-05-16 16:15] LABS: Hemoglobin A1C 6.7 % (<5.7)
[2025-05-16 16:32] LABS: ALT 13 U/L (14-59); AST 17 U/L (15-37); Albumin 2.3 g/dL (3.4-5.0); Alkaline Phosphatase 114 U/L (46-116); Anion Gap 9.0 mmol/L (3-11); BUN 15 mg/dL (7-18); Bilirubin, Total 0.2 mg/dL (0.2-1.0); CO2 30.0 mmol/L (21.0-32.0); Calcium 8.8 mg/dL (8.5-10.1); Chloride 103 mmol/L (98-107); Estimated GFR 73.52 (mL/min/1.73m2); Glucose 99 mg/dL (74-106); Potassium 3.9 mmol/L (3.5-5.1); Sodium 142 mmol/L (136-145); Total Protein 6.8 g/dL (6.4-8.2)
[2025-05-16 17:10] LABS: Iron 18 ug/dL (50-170); Total Iron Binding Capacity 205 ug/dL (250-450); Transferrin Sat 9 % (15-50)
[2025-05-16 17:27] LABS: Ferritin 430 ng/mL (8-252)
== END 2025-05-16 17:52 | disposition home or self-care (01) ==
LOC: NCHCN 17:51
PROVIDERS: PCP Physician Assistant Medical; Visit Provider Physician Assistant Medical
DX: R63.4 Abnormal weight loss (principal); D64.9 Anemia, unspecified
CPT/HCPCS: 80053; 82728; 83036; 83540; 83550; 85025; 85045

== ENCOUNTER 2025-06-06 15:04 | Outpatient (REF) | payer MEDICARE, SELFPAY ==
[2025-06-06 15:00] LABS: Abs Immature Grans 0.04 10^3/uL (0.0-0.06); HCT 29.2 % (36.0-46.0); HGB 8.7 g/dL (11.2-15.7); Immature Grans % 0.7 %; MCH 23.4 pg (27.0-33.0); MCHC 29.8 % (32.0-36.0); MCV 79 fL (80-95); MPV 8.9 fL (8.0-11.0); Platelet Count 533 10^3/uL (130-400); RBC 3.72 10^6/uL (3.93-5.22); RDW 18.4 % (11.7-14.6); RDW-SD 52.0 fL; WBC 5.90 10^3/uL (4.4-10.8)
[2025-06-06 15:27] LABS: ALT 25 U/L (14-59); AST 27 U/L (15-37); Albumin 2.2 g/dL (3.4-5.0); Alkaline Phosphatase 157 U/L (46-116); Anion Gap 8.0 mmol/L (3-11); BUN 11 mg/dL (7-18); Bilirubin, Total 0.2 mg/dL (0.2-1.0); CO2 29.0 mmol/L (21.0-32.0); Calcium 9.3 mg/dL (8.5-10.1); Chloride 103 mmol/L (98-107); Estimated GFR 73.52 (mL/min/1.73m2); Glucose 108 mg/dL (74-106); Potassium 3.7 mmol/L (3.5-5.1); Sodium 140 mmol/L (136-145); TSH (W/Ref FT4) 4.34 uIU/mL (0.36-3.74); Total Protein 7.7 g/dL (6.4-8.2)
== END 2025-06-06 15:05 | disposition home or self-care (01) ==
LOC: NCHCN 15:04
PROVIDERS: PCP Physician Assistant Medical; Visit Provider Physician Assistant Medical
DX: D64.9 Anemia, unspecified (principal)
CPT/HCPCS: 80053; 84439; 84443; 85025